=== PATIENT | male | born 1935 | race Caucasian/White ===

== ENCOUNTER 2017-03-08 21:16 | Emergency (ER) | payer OTHER ==
[~2017-03-08] VITALS: Ht 167.6 cm; Wt 74.8 kg
[2017-03-08 21:24] VITALS: Ht 167.6 cm; Wt 74.8 kg
[2017-03-09 00:32] VITALS: BP 154/74
== END 2017-03-09 00:32 | disposition home or self-care (01) ==
LOC: ED 21:16
DX: S02.609A Fracture of mandible, unspecified, initial encounter for closed fracture (principal); S01.81XA Laceration without foreign body of other part of head, initial encounter; S09.90XA Unspecified injury of head, initial encounter; W18.30XA Fall on same level, unspecified, initial encounter; Y93.9 Activity, unspecified; Y92.89 Other specified places as the place of occurrence of the external cause
CPT/HCPCS: 90715; J1885; J2001; Q0162